=== PATIENT | female | born 1990 | race Caucasian/White ===

== ENCOUNTER → 2024-08-25 | Outpatient (CLI) | payer OTHER | LOC: RAD 13:14 | DX: R05.9 Cough, unspecified (principal) ==

== ENCOUNTER → 2024-11-10 | Outpatient (REF) | payer OTHER | LOC: LAB 15:17 | DX: R05.9 Cough, unspecified (principal) ==

== ENCOUNTER → 2024-11-10 | Outpatient (REF) | payer OTHER | LOC: LAB 13:24 | DX: R05.9 Cough, unspecified (principal) ==